=== PATIENT | male | born 1985 | race Two or more races ===

== ENCOUNTER 2024-07-17 18:45 | Emergency (ER) | payer MEDICAID, SELFPAY ==
[2024-07-17 19:17] VITALS: BP 139/87; PULSE 105; RESP 18; TEMP 36.6; O2SAT 98; BMI 51.5
--- NOTE | 2024-07-17 19:17 | PD.EDRME ---
Rapid Medical Screening Exam RME Arrival date/time: 07/17/24 18:45 39 year old male present to ED for c/o of abd pain,n/vd I have greeted and performed a focused initial assessment of this patient. A comprehensive ED assessment and evaluation of the patient, analysis of all test results, and completion of the medical decision making process will be conducted by additional ED providers. Chief Complaint: Abdominal Pain Time Seen by Provider: 07/17/24 19:10
[2024-07-17] MEDS: ONDANSETRON ODT 4 MG TABRAP PO (19:30)
[2024-07-17] MEDS: HYDROcodone/APAP 5/325 TABLET 1 TAB PO (19:30)
[2024-07-17 19:59] LABS: Basophils % (Auto) 0 % (0-2.5); Eosinophils # (Auto) 0.1 Thou/mm3 (0.0-0.5); Eosinophils % (Auto) 1 % (0-10); Hematocrit 49.5 % (41.0-53.0); Hemoglobin 16.8 g/dL (13.5-16.0); Immature Granulocytes % (Auto) 0 % (0-0); Immature Granulocytes Auto 0.05 Thou/mm3 (0.00-0.00); Lymphocytes # (Auto) 0.9 Thou/mm3 (1.0-4.8); Lymphocytes % (Auto) 7 % (10-50); Mean Corpuscular HGB Conc 33.9 g/dl (31.0-37.0); Mean Corpuscular Hemoglobin 28.5 pg (25.0-35.0); Mean Corpuscular Volume 84 fL (80-100); Monocytes # (Auto) 0.5 Thou/mm3 (0.0-0.8); Monocytes % (Auto) 4 % (0-12); Neutrophils # (Auto) 10.7 Thou/mm3 (1.8-7.7); Neutrophils % (Auto) 87 % (37-80); Nucleated Red Blood Cell % 0 /100 WBC (0); Platelet Count 294 Thou/mm3 (140-440); RDW Standard Deviation 40.9 fL (35.1-43.9); White Blood Count 12.4 Thou/mm3 (3.8-10.6)
[2024-07-17 20:17] LABS: Alanine Aminotransferase 48 U/L (10-49); Anion Gap 8 (7-16); Aspartate Amino Transferase 32 U/L (0-34); BUN/Creatinine Ratio 17 Ratio (12-20); Blood Urea Nitrogen 15 mg/dL (9-23); Calcium 9.9 mg/dL (8.3-10.6); Carbon Dioxide 24.5 mMol/L (20.0-31.0); Chloride 102 mMol/L (98-107); Creatinine (Component) 0.9 mg/dL (0.6-1.3); Estimated Creatinine Clearance 183.6 mL/min (>60); Glucose 107 mg/dL (74-106); Osmolality,Calculated 269 (275-295); Potassium 3.9 mMol/L (3.4-5.1); Sodium 134 mMol/L (136-145); eGFR > 60 See Note
[2024-07-17 20:18] LABS: Albumin/Globulin Ratio 1.7 (1.2-2.2); Alkaline Phosphatase 98 U/L (46-116); Calcium (Corrected) 9.9 mg/dL (8.5-10.1); Lipase 32 U/L (12-53)
[2024-07-17 20:56] LABS: Collection Type, Urine Pedi-Bag
[2024-07-17 21:12] LABS: Bilirubin,Urine Negative (Negative); Blood,Urine Negative (Negative); Clarity,Urine Clear (Clear/Hazy); Color,Urine Yellow (Lt Yel-Yel); Glucose, Urine Negative (Negative); Ketones,Urine Negative (Negative); Leukocyte Esterase,Urine Positive (Negative); Nitrite,Urine Negative (Negative); Protein,Urine Trace (Neg - Trace); RBC,Urine 3 /hpf (0-3); Specific Gravity,Urine 1.038 (1.001-1.035); Squamous Epithelial Cell,Urine 3 /hpf (0-5); Urobilinogen,Urine Negative mg/dL (0.0-1.0); WBC,Urine 7 /hpf (0-5)
--- NOTE | 2024-07-17 21:56 | EDNOTE_ITS ---
<Statement entered by Lona Carranza MD - 07/18/24 22:06> As co-signing physician, I was present and available for consult prn. I concur with the plan and care as documented by the midlevel provider. ED General RME/HPI General Chief complaint: Abdominal Pain Stated complaint: ABDOMINAL PAIN Time Seen by Provider: 07/17/24 19:10 Arrival date/time: 07/17/24 18:45 RME / HPI RME / HPI narrative: 39-year-old male patient came in for evaluation regarding diarrhea. Patient woke up this morning with diarrhea severity moderate, nonbloody. Associated with abdominal cramping, nausea and vomiting. Denies any fever. Patient denies any ill contacts denies any other complaints no medications taken prior to arrival. Related Data Previous Rx's ?Medication ?Instructions ?Recorded ondansetron HCl 4 mg tablet 4 mg PO QID PRN nausea and 02/08/20 (Zofran) vomiting #14 tabs pantoprazole 40 mg tablet,delayed 40 mg PO QDAY #14 tabs 02/08/20 release (Protonix) cyclobenzaprine 10 mg tablet 10 mg PO HS PRN muscle spasm #10 02/27/23 tabs ibuprofen 600 mg tablet 600 mg PO TID PRN pain #30 tabs 02/27/23 lidocaine 5 % topical patch 1 patch topical QDAY #15 ea 02/27/23 (Lidoderm) ciprofloxacin HCl 500 mg tablet 500 mg PO BID #10 tabs 07/17/24 (Cipro) ondansetron HCl 4 mg tablet 4 mg PO Q8H PRN nausea and 07/17/24 vomiting 5 days #10 tabs Allergies Allergy/AdvReac Type Severity Reaction Status Date / Time No Known Allergies Allergy Verified 07/17/24 18:46 Review of Systems Review of Systems Narrative Review of Systems: Review of system reviewed and within normal limits except mentioned in HPI ED Exam Narrative Physical exam: VITAL SIGNS: Reviewed. GENERAL APPEARANCE: Alert and interactive, follows commands, no acute distress, HEAD AND FACE: Non-traumatic. ENT: PERRL, pink conjunctivitis, eyelid no trauma, Mucous membrane moist. NECK: Supple, nontender, no nuchal rigidity. CHEST: No tenderness, no crepitus, no paradoxical movement, no retractions. LUNGS: Clear, well ventilated, symmetric, no rales, no wheezing, no ronchi, no stridor, good breath sounds bilaterally. HEART: Regular rate, regular rhythm, no murmur, no gallops. ABDOMEN: Soft, positive bowel sounds, nondistended, no guarding, nontender, no rebound, no masses, RECTAL: Deferred. GENITAL: Deferred. NEUROLOGICAL: Gross motor function intact sensory function intact, Appropriate for age. MUSCULOSKELETAL: low back nontender, full range of motion. EXTREMITIES: Nontender, full range of motion. SKIN: Color pink, dry, no rash, no lacerations, no abrasions, no contusions. LYMPHATICS: Deferred. Course Quality Measures none Orders Category Date Time Status CBC Stat Lab 07/17/24 19:52 Completed CMP [Comprehensive Metabolic Panel] Stat Lab 07/17/24 19:52 Completed Lipase Stat Lab 07/17/24 19:52 Completed UA [Urinalysis] Stat Lab 07/17/24 20:32 Completed Urine Culture Stat Lab 07/17/24 19:22 Received Ciprofloxacin HCl [Ciprofloxacin] Med 07/17/24 21:51 Discontinued 500 mg PO X1 ONE Diphenoxylate/Atrop Sulf [Lomotil] Med 07/17/24 21:51 Discontinued 1 tab PO X1 ONE HYDROcodone*/APAP 5/325 [[place] 5/325] Med 07/17/24 19:21 Discontinued 1 tab PO X1 ONE Ondansetron Odt [Zofran Odt] Med 07/17/24 19:21 Discontinued 4 mg PO X1 ONE Vital Signs Vital signs: Vital Signs Temperature 98 F 07/17/24 19:17 Pulse Rate 105 H 07/17/24 19:17 Respiratory Rate 18 07/17/24 19:17 Blood Pressure 139/87 H 07/17/24 19:17 Pulse Oximetry (%) 98 07/17/24 19:17 Oxygen Delivery Method Room Air 07/17/24 19:17 [facility] Patient data External records reviewed:: [facility] previous records Clinical information provided by:: patient Social determinants that could affect healthcare access:: none Patient has the following chronic illnesses:: None How is presenting disease/condition affected by chronic disease/condition?: no chronic disease Evaluation data The following diagnostics were reviewed and interpreted by me:: lab results Lab and/or radiology exams considered but not ordered:: None Interpretation Summary: Workup today all came back normal except for leukocytosis 12.2 Medications Medications considered but not ordered:: None Medication administrations:: Medication Administration History Discontinued Medications Hydrocodone Bitart/Acetaminophen (Hydrocodone/Apap 5/325 Tablet) 1 tab PO X1 ONE Stop: 07/17/24 19:22 Last Admin: 07/17/24 19:30 Dose: 1 tab Documented By: JEANNE Ciprofloxacin (Ciprofloxacin Hcl 250 Mg Tablet) 500 mg PO X1 ONE Stop: 07/17/24 21:52 Diphenoxylate HCl/Atropine (Diphenoxylate/Atrop Sulf 1 Tab) 1 tab PO X1 ONE Stop: 07/17/24 21:52 Ondansetron HCl (Ondansetron Odt 4 Mg Tabrap) 4 mg PO X1 ONE; Protocol Stop: 07/17/24 19:22 Last Admin: 07/17/24 19:30 Dose: 4 mg Documented By: JEANNE Zofran, Lomotil and Cipro Consultations Consultation(s) initiated? (list below): No Diagnosis Differential Diagnosis ED Complaint MDM: Gastroenteritis, dehydration, abdominal pain Most likely diagnosis given after review of the tests above:: Gastroenteritis Admission Indicated Admission indicated?: not indicated Explain why admission is indicated or not indicated:: Stable Admission Request Was there a request for admission?: No Disposition Plan Disposition Plan: Discharge Discharge Attestation Discharge Attestation: The patient was given an opportunity to ask questions and understood the discharge instructions. Discharge instructions specifically effects, indications for sooner follow up or return to the emergency department, and the expected course of current diagnosis. Patient condition: Stable Medical Decision Making MDM Narrative MDM Narrative: 39-year-old male patient came in for evaluation regarding diarrhea. Patient woke up this morning with diarrhea severity moderate, nonbloody. Associated with abdominal cramping, nausea and vomiting. Denies any fever. Patient denies any ill contacts. Denies any other complaints. No medications taken prior to arrival. Patient's laboratory workup significant for leukocytosis of 12.4, rest of the labs unremarkable. Patient received Cipro and Zofran. Was also given Lomotil and [place]. Patient was noted to be stable prior to discharge. Patient is ambulatory. Differential Diagnosis Differential Diagnosis: Gastroenteritis, dehydration, abdominal pain Lab Data 07/17/24 19:52 07/17/24 19:52 Labs: Lab Results 07/17/24 07/17/24 Range/Units 19:52 20:32 WBC 12.4 H (3.8-10.6) Thou/mm3 RBC 5.90 (4.50-5.90) Miln/mm3 Hgb 16.8 H (13.5-16.0) g/dL Hct 49.5 (41.0-53.0) % MCV 84 (80-100) fL MCH 28.5 (25.0-35.0) pg MCHC 33.9 (31.0-37.0) g/dl RDW Std Deviation 40.9 (35.1-43.9) fL Plt Count 294 (140-440) Thou/mm3 Neut % (Auto) 87 H (37-80) % Lymph % (Auto) 7 L (10-50) % [place] % (Auto) 4 (0-12) % Eos % (Auto) 1 (0-10) % Baso % (Auto) 0 (0-2.5) % Neut # (Auto) 10.7 H (1.8-7.7) Thou/mm3 Lymph # (Auto) 0.9 L (1.0-4.8) Thou/mm3 [place] # (Auto) 0.5 (0.0-0.8) Thou/mm3 Eos # (Auto) 0.1 (0.0-0.5) Thou/mm3 Baso # (Auto) 0.0 (0.0-0.2) Thou/mm3 Immature Gran # (Auto) 0.05 H (0.00-0.00) Thou/mm3 Absolute Nucleated RBC 0.00 (0.00-0.00) Thou/mm3 Immature Gran % 0 (0-0) % Nucleated RBC % 0 (0) /100 WBC Sodium 134 L (136-145) mMol/L Potassium 3.9 (3.4-5.1) mMol/L Chloride 102 (98-107) mMol/L Carbon Dioxide 24.5 (20.0-31.0) mMol/L Anion Gap 8 (7-16) BUN 15 (9-23) mg/dL Creatinine 0.9 (0.6-1.3) mg/dL Estim Creat Clear Calc 183.6 (>60) mL/min eGFR > 60 (60 - ) See Note BUN/Creatinine Ratio 17 (12-20) Ratio Glucose 107 H (74-106) mg/dL Calculated Osmolality 269 L (275-295) Calcium 9.9 (8.3-10.6) mg/dL Corrected Calcium 9.9 (8.5-10.1) mg/dL Total Bilirubin 2.0 H (0.3-1.2) mg/dL AST 32 (0-34) U/L ALT 48 (10-49) U/L Alkaline Phosphatase 98 (46-116) U/L Total Protein 8.0 (5.7-8.2) gm/dL Albumin 5.0 (3.5-5.0) gm/dL Globulin 3.0 (2.3-3.5) gm/dL Albumin/Globulin Ratio 1.7 (1.2-2.2) Lipase 32 (12-53) U/L Ur Collection Type Pedi-Bag Urine Color Yellow (Lt Yel-Yel) Urine Clarity Clear (Clear/Hazy) Urine pH 6.0 (5.0-7.0) Ur Specific [place] 1.038 H (1.001-1.035) Urine Protein Trace (Neg - Trace) Urine Glucose (UA) Negative (Negative) Urine Ketones Negative (Negative) Urine Blood Negative (Negative) Urine Nitrite Negative (Negative) Urine Bilirubin Negative (Negative) Urine Urobilinogen (Auto) Negative (0.0-1.0) mg/dL Ur Leukocyte Esterase Positive (Negative) Urine RBC 3 (0-3) /hpf Urine WBC 7 H (0-5) /hpf Ur Squamous Epith Cells 3 (0-5) /hpf Urine Bacteria None (None) Discharge Plan Plan Patient Disposition: HOME (Self Care) Disposition Comment: stable Prescriptions/Referrals Prescriptions/Med Rec: New ciprofloxacin HCl [Cipro] 500 mg tablet 500 mg PO BID Qty: 10 0RF ondansetron HCl 4 mg tablet 4 mg PO Q8H PRN (Reason: nausea and vomiting) 5 Days Qty: 10 0RF No Action pantoprazole [Protonix] 40 mg tablet,delayed release (DR/EC) 40 mg PO QDAY Qty: 14 0RF ondansetron HCl [Zofran] 4 mg tablet 4 mg PO QID PRN (Reason: nausea and vomiting) Qty: 14 0RF cyclobenzaprine 10 mg tablet 10 mg PO HS PRN (Reason: muscle spasm) Qty: 10 0RF lidocaine [Lidoderm] 5 % adhesive patch,medicated 1 patch topical QDAY Qty: 15 0RF Rx Instructions: leave on most painful area for up to 12 hrs ibuprofen 600 mg tablet 600 mg PO TID PRN (Reason: pain) Qty: 30 0RF Referrals: No Primary/Family,Physician [Primary Care Provider] - In 1 week Problem List Clinical Impression: Gastroenteritis Patient/Caregiver Discharge Instructions Discharge Activity: activity as tolerated Education Materials: Anatomy of the Digestive System Additional Instructions: Thank you for the opportunity for serving you today. You are stable for discharged . You are advised to: Follow-up with your PCP in 1 to 2 days Return to ED for worsening of symptoms Increase oral fluids Take medication as prescribed Print Language: Northern Irish Stand Alone Forms: [place] Award Info., Patient Portal Info Letter BEAU/DENVER Supervising Physician BEAU/DENVER Supervising Physician: MD Dillon
[2024-07-17] MEDS: DIPHENOXYLATE/ATROP SULF 1 TAB PO (21:58)
[2024-07-17] MEDS: CIPROFLOXACIN HCL 250 MG TABLET 500 MG PO (21:58)
[2024-07-17 22:07] VITALS: RESP 18
== END 2024-07-17 22:08 | disposition home or self-care (01) ==
PROVIDERS: Physician Assistant; Emergency Provider Emergency Medicine
DX: K52.9 Noninfective gastroenteritis and colitis, unspecified (principal)
CPT/HCPCS: 36415; 80053; 81001; 83690; 85025; 87086; 99283; Q0162; A9270

== ENCOUNTER 2025-04-01 23:53 | Emergency (ER) | payer MEDICAID, SELFPAY ==
[2025-04-01 23:55] VITALS: BMI 50.1
[2025-04-02 00:35] VITALS: BP 150/91; PULSE 86; RESP 20; TEMP 36.7; O2SAT 95
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
[2025-04-02] MEDS: HYDROcodone/APAP 5/325 TABLET 1 TAB PO (01:13)
--- NOTE | 2025-04-02 01:35 | PC.NURSE ---
FAXED INFORMATION TO [facility] AND TALKED TO TYLER NURSE AT TRANSFER CENTER.
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
--- NOTE | 2025-04-02 03:04 | PC.NURSE ---
PT IS NOT AT RME 5, NO ANSWER AT ER LOBBY AND OUTSIDE ER.
== END 2025-04-02 03:17 | disposition left against medical advice (07) ==
PROVIDERS: Emergency Provider Emergency Medicine; PCP Family Medicine
DX: T25.291A Burn of second degree of multiple sites of right ankle and foot, initial encounter (principal); T31.0 Burns involving less than 10% of body surface; X11.8XXA Contact with other hot tap-water, initial encounter; Z53.29 Procedure and treatment not carried out because of patient's decision for other reasons
CPT/HCPCS: 99283; A9270